=== PATIENT | female | born 2000 | race Caucasian/White ===

== ENCOUNTER 2023-03-18 17:39 | Observation (INO) | payer OTHER ==
[2023-03-18] MEDS ORDERED: SODIUM CHLORIDE 0.9% 1,000 ML IV STA ×2 (18:13)
--- NOTE | 2023-03-18 18:13 | ED ---
Psych HPI - General Chief Complaint: Psychiatric Symptoms Stated Complaint: petition Time Seen by Provider: 03/18/23 18:00 Source: patient, police, RN notes reviewed Mode of arrival: ambulatory - History of Present Illness Initial Comments: 22-year-old female with history depression who took his many as 48 [id number] 25 mg Benadryl tablets around 3:30 to 4 PM today he does admit to feeling sleepy she states she was try to herself. She was brought in by police under petition. She denies any other medications denies any other medical problems at this time. MD Complaint: suicidal ideation, feels depressed - Related Data Allergies Allergy/AdvReac Type Severity Reaction Status Date / Time No Known Allergies Allergy Verified 03/18/23 18:25 Review of Systems ROS Statement: Those systems with pertinent positive or pertinent negative responses have been documented in the HPI. ROS Other: All systems not noted in ROS Statement are negative. Past Medical History Past Medical History: No Reported History Past Surgical History: No Surgical Hx Reported Past Psychological History: Anxiety, Depression Smoking Status: Current some day smoker Past Alcohol Use History: Occasional Past Drug Use History: Marijuana General Exam - General Exam Comments Initial Comments: Is a well-developed well-nourished awake alert oriented 4 female she does appear tired and somewhat anxious and some episodes of confusion. Limitations: no limitations General appearance: alert, anxious Head exam: Present: atraumatic, normocephalic, normal inspection Eye exam: Present: normal appearance, PERRL, EOMI. Absent: scleral icterus, conjunctival injection, periorbital swelling ENT exam: Present: mucous membranes dry Neck exam: Present: normal inspection, full ROM, other (No stridor JVD or bruits). Absent: tenderness, meningismus, lymphadenopathy Respiratory exam: Present: normal lung sounds bilaterally. Absent: respiratory distress, wheezes, rales, rhonchi, stridor Cardiovascular Exam: Present: normal rhythm, tachycardia, normal heart sounds. Absent: systolic murmur, diastolic murmur, rubs, gallop, clicks GI/Abdominal exam: Present: soft, normal bowel sounds. Absent: distended, tenderness, guarding, rebound, rigid Extremities exam: Present: normal inspection, full ROM, normal capillary refill. Absent: tenderness, pedal edema, joint swelling, calf tenderness Back exam: Present: normal inspection Neurological exam: Present: alert, oriented X3, CN II-XII intact Psychiatric exam: Present: depressed, anxious, suicidal ideation Skin exam: Present: warm, dry, intact, normal color. Absent: rash Course Vital Signs 03/18/23 03/18/23 03/18/23 17:47 18:15 18:42 Temperature 97.5 F L Pulse Rate 141 H 149 H 134 H Respiratory 24 18 24 Rate Blood Pressure 133/84 138/79 136/87 O2 Sat by Pulse 97 96 98 Oximetry - Reevaluation(s) Reevaluation #1: 03/18/23 20:43 Evaluation the patient for she still tachycardic still demonstrate some confusion no new findings since arrival. I did discuss the findings the patient's father who was present. Medical Decision Making - Medical Decision Making I did discuss the findings with the patient and her father was present patient is demonstrating symptoms of overdose of Benadryl. Patient will be admitted to medicine for inpatient evaluation with psychiatric consultation in the a.m. I did discuss the case with . Was pt. sent in by a medical professional or institution (, PA, HAULING CONTRACTOR, urgent care, hospital, or detention...) When possible be specific @ -No Did you speak to anyone other than the patient for history (EMS, parent, family, police, friend...)? What history was obtained from this source @ -Police around arrival time Did you review nursing and triage notes (agree or disagree)? Why? @ -I reviewed and agree with nursing and triage notes Were old charts reviewed (outside hosp., previous admission, EMS record, old EKG, old radiological studies, urgent care reports/EKG's, detention records)? Report findings @ -No old charts were reviewed Differential Diagnosis (chest pain, altered mental status, abdominal pain women, abdominal pain men, vaginal bleeding, weakness, fever, dyspnea, syncope, headache, dizziness, GI bleed, back pain, seizure, CVA, palpatations, mental health, musculoskeletal)? @ -Depression, suicidal ideation, Benadryl overdose EKG interpreted by me (3pts min.). @ -As above EKG interpreted by me sinus tachycardia of 131 NH interval 120 QRS duration 86 QT/QTC 284/361 indeterminate axis possible right ventricular conduction delay no acute ST-T wave changes seen. X-rays interpreted by me (1pt min.). @ -None done CT interpreted by me (1pt min.). @ -None done U/S interpreted by me (1pt. min.). @ -None done What testing was considered but not performed or refused? (CT, X-rays, U/S, labs)? Why? @ -None What meds were considered but not given or refused? Why? @ -None Did you discuss the management of the patient with other professionals (professionals i.e. , PA, HAULING CONTRACTOR, lab, RT, psych nurse, social sciences lecturer, analyzer sales, teacher, supervisory cbp officer, embedded case manager)? Give summary @ -Dr. Smith Was smoking cessation discussed for >3mins.? @ -No Was critical care preformed (if so, how long)? @ -No Were there social determinants of health that impacted care today? How? (Homelessness, low income, unemployed, alcoholism, drug addiction, transportation, low edu. Level, literacy, decrease access to med. care, [facility] [facility], rehab)? @ -No Was there de-escalation of care discussed even if they declined (Discuss DNR or withdrawal of care, Hospice)? DNR status @ -No What co-morbidities impacted this encounter? (DM, HTN, Smoking, COPD, CAD, Cancer, CVA, ARF, Chemo, Hep., AIDS, mental health diagnosis, sleep apnea, morbid obesity)? @ -Depression] Was patient admitted / discharged? Hospital course, mention meds given and route, prescriptions, significant lab abnormalities, going to OR and other pertinent info. @ -hospital course H was admitted for inpatient observation and evaluation with psychiatric consultation in the a.m. Undiagnosed new problem with uncertain prognosis? @ -No Drug Therapy requiring intensive monitoring for toxicity (Heparin, Nitro, Insulin, Cardizem)? @ -Benadryl overdose Were any procedures done? @ -No Diagnosis/symptom? @ -Depression, suicidal ideation, Benadryl overdose, sinus tachycardia Acute, or Chronic, or Acute on Chronic? @ -Acute Uncomplicated (without systemic symptoms) or Complicated (systemic symptoms)? @ -Located Side effects of treatment? @ -No Exacerbation, Progression, or Severe Exacerbation? @ -No Poses a threat to life or bodily function? How? (Chest pain, [place], CA, pneumonia, PE, COPD, DKA, ARF, appy, cholecystitis, CVA, Diverticulitis, Homicidal, Castro icidal, threat to staff... and all critical care pts) @ -Potential, overdose - Lab Data Result diagrams: 03/18/23 18:16 03/18/23 18:16 Lab Results 03/18/23 03/18/23 03/18/23 Range/Units 18:09 18:10 18:16 WBC (3.8-10.6) k/uL RBC (3.80-5.40) m/uL Hgb (11.4-16.0) gm/dL Hct (34.0-46.0) % MCV (80.0-100.0) fL MCH (25.0-35.0) pg MCHC (31.0-37.0) g/dL RDW (11.5-15.5) % Plt Count (150-450) k/uL MPV Neutrophils % % Lymphocytes % % Monocytes % % Eosinophils % % Basophils % % Neutrophils # (1.3-7.7) k/uL Lymphocytes # (1.0-4.8) k/uL Monocytes # (0-1.0) k/uL Eosinophils # (0-0.7) k/uL Basophils # (0-0.2) k/uL Sodium 144 (137-145) mmol/L Potassium 4.0 (3.5-5.1) mmol/L Chloride 107 (98-107) mmol/L Carbon Dioxide 19 L (22-30) mmol/L Anion Gap 18 mmol/L BUN 8 (7-17) mg/dL Creatinine 0.59 (0.52-1.04) mg/dL Est GFR (CKD-EPI)AfAm >90 (>60 ml/min/1.73 sqM) Est GFR (CKD-EPI)NonAf >90 (>60 ml/min/1.73 sqM) Glucose 85 (74-99) mg/dL Calcium 10.2 (8.4-10.2) mg/dL Magnesium 2.0 (1.6-2.3) mg/dL Total Bilirubin 0.5 (0.2-1.3) mg/dL AST 26 (14-36) U/L ALT 32 (4-34) U/L Alkaline Phosphatase 78 (38-126) U/L Creatine Kinase 54 (30-135) U/L Total Protein 9.1 H (6.3-8.2) g/dL Albumin 5.2 H (3.5-5.0) g/dL Urine HCG, Qual Not Detected (Not Detectd) Salicylates <1.0 mg/dL Urine Opiates Screen Not Detected (NotDetected) Ur Oxycodone Screen Not Detected (NotDetected) Urine Methadone Screen Not Detected (NotDetected) Ur Propoxyphene Screen Not Detected (NotDetected) Acetaminophen <10.0 ug/mL Ur Barbiturates Screen Not Detected (NotDetected) U Tricyclic Antidepress Not Detected (NotDetected) Ur Phencyclidine Scrn Not Detected (NotDetected) Ur Amphetamines Screen Not Detected (NotDetected) U Methamphetamines Scrn Not Detected (NotDetected) U Benzodiazepines Scrn Not Detected (NotDetected) Urine Cocaine Screen Not Detected (NotDetected) U Marijuana (THC) Screen Not Detected (NotDetected) Serum Alcohol <10 mg/dL Influenza Type A (PCR) (Not Detectd) Influenza Type B (PCR) (Not Detectd) RSV (PCR) (Not Detectd) SARS-CoV-2 (PCR) (Not Detectd) 03/18/23 03/18/23 Range/Units 18:16 18:16 WBC 12.6 H (3.8-10.6) k/uL RBC 5.31 (3.80-5.40) m/uL Hgb 15.2 (11.4-16.0) gm/dL Hct 46.9 H (34.0-46.0) % MCV 88.3 (80.0-100.0) fL MCH 28.7 (25.0-35.0) pg MCHC 32.5 (31.0-37.0) g/dL RDW 12.6 (11.5-15.5) % Plt Count 426 (150-450) k/uL MPV 7.6 Neutrophils % 74 % Lymphocytes % 19 % Monocytes % 4 % Eosinophils % 1 % Basophils % 1 % Neutrophils # 9.3 H (1.3-7.7) k/uL Lymphocytes # 2.4 (1.0-4.8) k/uL Monocytes # 0.5 (0-1.0) k/uL Eosinophils # 0.2 (0-0.7) k/uL Basophils # 0.1 (0-0.2) k/uL Sodium (137-145) mmol/L Potassium (3.5-5.1) mmol/L Chloride (98-107) mmol/L Carbon Dioxide (22-30) mmol/L Anion Gap mmol/L BUN (7-17) mg/dL Creatinine (0.52-1.04) mg/dL Est GFR (CKD-EPI)AfAm (>60 ml/min/1.73 sqM) Est GFR (CKD-EPI)NonAf (>60 ml/min/1.73 sqM) Glucose (74-99) mg/dL Calcium (8.4-10.2) mg/dL Magnesium (1.6-2.3) mg/dL Total Bilirubin (0.2-1.3) mg/dL AST (14-36) U/L ALT (4-34) U/L Alkaline Phosphatase (38-126) U/L Creatine Kinase (30-135) U/L Total Protein (6.3-8.2) g/dL Albumin (3.5-5.0) g/dL Urine HCG, Qual (Not Detectd) Salicylates mg/dL Urine Opiates Screen (NotDetected) Ur Oxycodone Screen (NotDetected) Urine Methadone Screen (NotDetected) Ur Propoxyphene Screen (NotDetected) Acetaminophen ug/mL Ur Barbiturates Screen (NotDetected) U Tricyclic Antidepress (NotDetected) Ur Phencyclidine Scrn (NotDetected) Ur Amphetamines Screen (NotDetected) U Methamphetamines Scrn (NotDetected) U Benzodiazepines Scrn (NotDetected) Urine Cocaine Screen (NotDetected) U Marijuana (THC) Screen (NotDetected) Serum Alcohol mg/dL Influenza Type A (PCR) Not Detected (Not Detectd) Influenza Type B (PCR) Not Detected (Not Detectd) RSV (PCR) Not Detected (Not Detectd) SARS-CoV-2 (PCR) Not Detected (Not Detectd) - EKG Data -: EKG Interpreted by Me EKG Comments: Interpretation by me sinus tachycardia rate 131. Interval 120 QRS duration 86 QT since QTC indeterminate axis possible ventricular conduction delay no acute ST-T wave changes Disposition Clinical Impression: Depression, Suicidal ideation, Drug overdose, intentional Disposition: ADMITTED IP TO THIS HOSP Condition: Stable Referrals: None,Stated [Primary Care Provider] - 1-2 days Decision Date: 03/18/23 Decision Time: 20:56
[2023-03-18 18:40] LABS: Basophils # (A) 0.1 k/uL (0-0.2); Basophils % (A) 1 %; Eosinophils # (A) 0.2 k/uL (0-0.7); Eosinophils % (A) 1 %; HCT 46.9 % (34.0-46.0); HGB 15.2 gm/dL (11.4-16.0); Lymphocytes # (A) 2.4 k/uL (1.0-4.8); Lymphocytes % (A) 19 %; MCH 28.7 pg (25.0-35.0); MCHC 32.5 g/dL (31.0-37.0); MCV 88.3 fL (80.0-100.0); Mean Platelet Volume 7.6; Monocytes # (A) 0.5 k/uL (0-1.0); Monocytes % (A) 4 %; Neutrophils # (A) 9.3 k/uL (1.3-7.7); Neutrophils % (A) 74 %; Platelet Count 426 k/uL (150-450); RBC 5.31 m/uL (3.80-5.40); RDW 12.6 % (11.5-15.5); WBC 12.6 k/uL (3.8-10.6)
[2023-03-18 18:48] LABS: Sodium 144 mmol/L (137-145)
[2023-03-18 18:49] LABS: ALT 32 U/L (4-34); AST 26 U/L (14-36); Acetaminophen <10.0 ug/mL; African American GFR (CKD) >90 (>60 ml/min/1.73 sqM); Albumin 5.2 g/dL (3.5-5.0); Alcohol <10 mg/dL; Alkaline Phosphatase 78 U/L (38-126); Anion Gap 18 mmol/L; Blood Urea Nitrogen 8 mg/dL (7-17); Calcium 10.2 mg/dL (8.4-10.2); Carbon Dioxide 19 mmol/L (22-30); Chloride 107 mmol/L (98-107); Creatine Kinase 54 U/L (30-135); Glucose 85 mg/dL (74-99); Non-African American GFR(CKD) >90 (>60 ml/min/1.73 sqM); Salicylate <1.0 mg/dL; Total Bilirubin 0.5 mg/dL (0.2-1.3); Total Protein 9.1 g/dL (6.3-8.2)
[2023-03-18 19:21] LABS: Amphetamine Screen,Urine Not Detected (NotDetected); Barbiturate Screen,Urine Not Detected (NotDetected); Benzodiazepines Screen,Urine Not Detected (NotDetected); Cocaine Screen,Urine Not Detected (NotDetected); Methadone Screen, Urine Not Detected (NotDetected); Opiate Screen,Urine Not Detected (NotDetected); Oxycodone Screen, Urine Not Detected (NotDetected); Phencyclidine Screen,Urine Not Detected (NotDetected); Tricyclic Antidepressant,Urine Not Detected (NotDetected); Urn Cannabinoid Scrn Not Detected (NotDetected)
[2023-03-18] MEDS ORDERED: NALOXONE 0.4 MG/ML 1 ML VIAL IV PRN (20:56)
[2023-03-18] MEDS: SODIUM CHLORIDE 0.9% 1,000 ML IV SCH (21:00)
--- NOTE | 2023-03-18 23:26 | P.HPIM ---
History of Present Illness H&P Date: 03/18/23 Patient is a 22-year-old female with a PMH of depression and prior history of suicide attempt with overdose who presents to the emergency room after an intentional overdose of Benadryl. Patient reports that she had gotten into an argument with her which led to her feeling down. States the argument was a day prior and that earlier today she decided to take a full bottle of Benadryl with likely 25 mg 50 tablets. Reports feeling somewhat strange at the time of interview but had no additional complaints. Denied experiencing chest discomfort, shortness of breath, fever, chills, cough, nausea, vomiting, abdominal pain, diarrhea. at the bedside states that she is not acting quite like herself. In the emergency room EKG reveals sinus tachycardia at [address]/T-wave changes noted as reviewed by me. Laboratory evaluation was remarkable for leukocytosis of 12.6, CO2 19, albumin 5.2, with urine toxicology negative. ED documentation reviewed and case discussed with ED provider. Review of systems: Pertinent positives and negatives as discussed in HPI, a complete review of systems was performed and all other systems are negative. Physical examination: Vital signs reviewed General: non toxic, no distress, appears at stated age, overweight Derm: no unusual rashes/lesions, warm Head: atraumatic, normocephalic, symmetric Eyes: EOMI, no lid lag, anicteric sclera, pupils equal round reactive to light ENT: Nose and ears atraumatic Neck: No cervical lymphadenopathy, trachea midline, supple Mouth: no lip lesion, mucus membranes moist Cardiovascular: S1S2 reg, no murmur, positive dorsalis pedis pulse bilateral, no edema Lungs: CTA bilateral, no rhonchi, no rales, no accessory muscle use Abdominal: soft, nontender to palpation, no guarding Ext: muscle strength 5 out of 5 in all 4 extremities grossly, no gross muscle atrophy, no contractures, Neuro: CN II-XI grossly intact, no gross focal neuro deficits Psych: Alert, oriented, appropriate affect Assessment: Intentional Benadryl overdose, mild anticholinergic toxicity Leukocytosis, likely secondary to acute stress without obvious signs of infection Imaging: In the emergency room EKG reveals sinus tachycardia at [address]/T-wave changes noted as reviewed by me. Data Review: Laboratory evaluation was remarkable for leukocytosis of 12.6, CO2 19, albumin 5.2, with urine toxicology negative. Plan: Cardiac monitoring Continue with IV fluids with normal saline 130 mL/h Psychiatry consult Suicide precautions DVT prophylaxis: Lovenox subcu The patient is admitted with an anticipated less than 2 midnight stay for evaluation of overdose CODE STATUS: Full Code Discussed with: Patient Anticipated discharge place: Home Past Medical History Past Medical History: No Reported History Past Surgical History: No Surgical Hx Reported Past Psychological History: Anxiety, Depression Smoking Status: Current some day smoker Past Alcohol Use History: Occasional Past Drug Use History: Marijuana Medications and Allergies Home Medications Medication Instructions Recorded Confirmed Type Cholecalciferol [Vitamin D3 (25 50 mcg PO DAILY 03/18/23 03/18/23 History Mcg = 1000 Iu)] Ferrous Sulfate [Feosol] 325 mg PO DAILY 03/18/23 03/18/23 History norgestimate-ethinyl estradioL 1 tab PO DAILY 03/18/23 03/18/23 History [Tri-Sprintec Tablet] Allergies Allergy/AdvReac Type Severity Reaction Status Date / Time No Known Allergies Allergy Verified 03/18/23 22:15 Physical Exam Vitals: Vital Signs Temp Pulse Resp BP Pulse Ox 03/18/23 21:13 116 H 20 130/75 97 03/18/23 18:42 134 H 24 136/87 98 03/18/23 18:15 149 H 18 138/79 96 03/18/23 17:47 97.5 F L 141 H 24 133/84 97 Intake and Output 03/18/23 03/18/23 03/19/23 14:59 22:59 06:59 Other: Weight 72.575 kg Results CBC & Chem 7: 03/18/23 18:16 03/18/23 18:16 Labs: Abnormal Lab Results - Last 24 Hours (Table) 03/18/23 03/18/23 Range/Units 18:16 18:16 WBC 12.6 H (3.8-10.6) k/uL Hct 46.9 H (34.0-46.0) % Neutrophils # 9.3 H (1.3-7.7) k/uL Carbon Dioxide 19 L (22-30) mmol/L Total Protein 9.1 H (6.3-8.2) g/dL Albumin 5.2 H (3.5-5.0) g/dL
[2023-03-19] MEDS: SODIUM CHLORIDE 0.9% 1,000 ML IV SCH ×3 (03:50→22:28)
[2023-03-19] MEDS: ENOXAPARIN 40 MG/0.4 ML SYRINGE SQ SCH (10:34)
--- NOTE | 2023-03-19 16:57 | P.PN ---
Subjective Progress Note Date: 03/19/23 Hospital course: Patient is a very pleasant 22-year-old female with a past medical history of depression and previous suicidal attempts. She presented in the emergency department on 03/18/23 secondary to reports of intentional overdose of Benadryl. Per documentation in chart patient had gotten into an argument with her resulting in increased depression so she decided to take a full bottle of Benadryl 25 mg tablets (approximately 50 tablets in bottle) in a reported attemp t to take her life. Patient underwent full evaluation in the emergency department. Vital signs upon arrival showing heart rate 141, respiratory rate 24, blood pressure 133/84, temp 97.4, and SpO2 of 97% on room air. EKG was completed showing sinus tachycardia and 31 bpm. Labs completed and reviewed. CBC showing mild leukocytosis with WBC count of 12.6 otherwise normal findings. BMP revealing mild hypocarbia with bicarb of 19 and elevated anion gap of 18 otherwise normal findings. Liver profile unremarkable. Urine hCG was negative for . Urine drug screen negative. Salicylates and acetaminophen negative. Serum alcohol was also negative. Influenza A, influenza B, RSV, Covid PCR negative. Patient was admitted under our services with consultation to psychiatry. Physical exam: Patient seen and fully evaluated at bedside. Patient sleeping in bed patient's significant other at bedside sleeping in chair. Patient denies having any complaints including headache, lightheadedness, dizziness, chest pain, palpitations, shortness of breath or experiencing any numbness/tingl ing/weakness/swelling in her extremities. Patient no longer tachycardic at time of assessment. Patient was at her outside of door monitoring closely/continuously for suicide/kilo minute precautions. Vital signs reviewed and stable. General: Nontoxic, no distress and appears stated age. Derm: Skin warm and dry, normal coloration for ethnicity. Head: Atraumatic, normocephalic and symmetric. Eyes: EOMs intact, no lid lag, and anicteric sclera Mouth: no lip lesions, mucus membranes moist Cardiovascular: regular rate and rhythm with normal S1S2, no murmur, positive posterior tibial pulses bilaterally, and cap refill < 2 seconds. Lungs: Respirations even, regular, and unlabored on room air. Lungs CTA bilaterally, no rhonchi, no rales, no wheezing, and no accessory muscle usage. Abdominal: soft, nontender to palpation, no guarding, no appreciable organomegaly Ext: ROM intact. No gross muscle atrophy, no edema, no contractures Neuro: Speech clear, face symmetrical and CN II-XII grossly intact with no noted focal neuro deficits Psych: Alert and oriented to person, place, time, and situation. Appropriate and pleasant affect. Assessment and Plan of Care: Suicidal attempt via intentional overdose Mild anticholinergic toxicity with sinus tachycardia Leukocytosis, reactive secondary to acute stressor no signs of infection -Patient to remain on continuous telemetry monitoring -Gentle IV fluid hydration with 0.9% normal saline at 130 mL per hour. -Neuro checks every 4 hours -Fall precautions -Suicide precautions and elopement precautions to remain in place -Psychiatry consulted, appreciate recommendations Data reviewed: Vital signs reviewed. Blood pressure 114/72, heart rate 67, respiratory rate 17, temp 98.2F, and SpO2 of 96% on room air. Patient is medically optimized for discharge at this time, she has no further episodes of tachycardia concerning for mild anticholinergic toxicity. Vital signs stable. Awaiting evaluation by psychiatry. Once psychiatry evaluates patient, patient may be cleared for discharge to inpatient psychiatric unit. CODE STATUS: Full code DVT prophylaxis: Lovenox Anticipated discharge date: Clinical course to determine, medically optimized for discharge to inpatient psychiatric unit Anticipated discharge place: Inpatient psychiatric unit Patient was seen independently by Nurse Pracitioner. This document was prepared using [employer] dictation software. Please allow for errors in [employer], while rare they do occur. Demario Cartagena NP rendered care for this patient independently, reviewed the findings and plan as documented in the note above. I did not physically speak with or examine the patient on this date. Objective - Vital Signs Vital signs: Vital Signs Temp 98.2 F 03/19/23 06:36 Pulse 66 03/19/23 07:10 Resp 18 03/19/23 07:10 BP 115/72 03/19/23 07:10 Pulse Ox 97 03/19/23 07:10 FiO2 Intake & Output 03/18/23 03/19/23 03/19/23 18:59 06:59 18:59 Weight 72.575 kg - Labs CBC & Chem 7: 03/18/23 18:16 03/18/23 18:16 Labs: Abnormal Lab Results - Last 24 Hours (Table) 03/18/23 03/18/23 Range/Units 18:16 18:16 WBC 12.6 H (3.8-10.6) k/uL Hct 46.9 H (34.0-46.0) % Neutrophils # 9.3 H (1.3-7.7) k/uL Carbon Dioxide 19 L (22-30) mmol/L Total Protein 9.1 H (6.3-8.2) g/dL Albumin 5.2 H (3.5-5.0) g/dL
[2023-03-20] MEDS: SODIUM CHLORIDE 0.9% 1,000 ML IV SCH ×2 (05:11→11:35)
[2023-03-20 08:34] VITALS: RESP 16
[2023-03-20] MEDS: ENOXAPARIN 40 MG/0.4 ML SYRINGE SQ SCH (09:34)
[2023-03-20 11:08] LABS: HCT 37.5 % (37.2-46.3); HGB 12.1 g/dL (12.0-15.0); MCH 28.6 pg (27.0-32.0); MCHC 32.3 g/dL (32.0-37.0); MCV 88.7 FL (80.0-97.0); Mean Platelet Volume 9.7 FL (9.5-12.2); NRBC Per 100 WBC 0 X 10*3/uL (0.00-0.01); Platelet Count 327 X 10*3/uL (140-440); RBC 4.23 X 10*6/uL (4.10-5.20); RDW 12.1 % (11.5-14.5); WBC 10.65 X 10*3/uL (4.50-10.00)
[2023-03-20 11:21] LABS: ALT 23 U/L (8-44); AST 15 U/L (13-35); Albumin 3.9 g/dL (3.8-4.9); Alkaline Phosphatase 70 U/L (41-126); BUN/Creat Ratio 11.33 Ratio (12.00-20.00); Blood Urea Nitrogen 6.8 mg/dL (9.0-27.0); Calcium 8.8 mg/dL (8.7-10.3); Carbon Dioxide 21.1 mmol/L (21.6-31.8); Chloride 108 mmol/L (96-109); Globulin 2.6 g/dL (1.6-3.3); Glucose 79 mg/dL (70-110); Magnesium 1.9 mg/dL (1.5-2.4); Potassium 3.7 mmol/L (3.5-5.5); Sodium 137 mmol/L (135-145); Total Bilirubin 0.6 mg/dL (0.3-1.2); Total Protein 6.5 g/dL (6.2-8.2)
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
[2023-03-20] MEDS ORDERED: traZODone HCL 50 MG TAB PO PRN (13:16)
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
[2023-03-20] MEDS ORDERED: SERTRALINE 25 MG TAB PO SCH (13:30)
[2023-03-20 13:37] VITALS: BP 117/75; PULSE 77; TEMP 98.6
== END 2023-03-20 22:30 ==
LOC: EC 17:39 → 5NMEDONC 20:56
PROVIDERS: ADMIT Internal Medicine; ATTEND Internal Medicine
DX: T45.0X2A Poisoning by antiallergic and antiemetic drugs, intentional self-harm, initial encounter (principal); T44.3X5A Adverse effect of other parasympatholytics [anticholinergics and antimuscarinics] and spasmolytics, initial encounter; R00.0 Tachycardia, unspecified; Z91.51 Personal history of suicidal behavior; F32.9 Major depressive disorder, single episode, unspecified; F41.9 Anxiety disorder, unspecified; Z74.3 Need for continuous supervision; Z20.822 Contact with and (suspected) exposure to COVID-19; F17.200 Nicotine dependence, unspecified, uncomplicated
CPT/HCPCS: 96361 ×4; 96372 ×2; 82075; 96360; 99285; 36415; 80053 ×2; 82550; 83735 ×2; 85025; 85027; 81025; 80306; 80143; 87636; 80179; G0378 ×3; G0480; J1650 ×2; 80320

== ENCOUNTER 2023-03-20 19:41 | Inpatient (IN) | payer MEDICAID ==
[2023-03-20] MEDS ORDERED: HALOPERIDOL LACTATE 5 MG/ML 1 ML VIAL IM PRN (19:58)
[2023-03-20] MEDS ORDERED: LORazepam 1 MG TAB PO PRN (19:58)
[2023-03-20] MEDS ORDERED: MAG HYDROX/AL HYDROX/SIMETH 30 ML CUP PO PRN (19:58)
[2023-03-20] MEDS ORDERED: LORazepam 2 MG/ML INJ IM PRN (19:58)
[2023-03-20] MEDS ORDERED: ACETAMINOPHEN TAB 325 MG TAB PO PRN (19:58)
[2023-03-20] MEDS ORDERED: haloperidoL 5 MG TAB PO PRN (19:58)
[2023-03-20] MEDS ORDERED: IBUPROFEN 600 MG TAB PO PRN (19:58)
[2023-03-20] MEDS ORDERED: MAGNESIUM HYDROXIDE 2,400 MG/30 ML CUP PO PRN (19:58)
[2023-03-20] MEDS ORDERED: traZODone HCL 50 MG TAB PO PRN (23:16)
[2023-03-21] MEDS ORDERED: SERTRALINE 25 MG TAB PO SCH (09:00)
[2023-03-21] MEDS: FERROUS SULFATE 325 MG TAB PO SCH (09:04)
[2023-03-21] MEDS: CHOLECALCIFEROL 25 MCG (1000 IU) TABLET PO SCH (09:04)
[2023-03-21] MEDS: NORGESTIMATE ETHINYL ESTRADIOL PO SCH (10:12)
--- NOTE | 2023-03-21 11:21 | P.HP ---
Psychiatric H&P - . 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 HPI: Patient presented to the hospital hospital initially on 03/18, apparently patient has a history of depression. She presented after a overdose of a bottle of Benadryl at home. Patient was reportedly confused, admitted to it being a suicide attempt. Patient was also petitioned by police. Urine drug screen was negative, blood alcohol level was negative. Patient was admitted medically, and transferred to the U after she was medically stable. Upon todays interview, patient states that she's feeling a little better, just very sleepy. She states that her mood and anxiety are doing "fine" continues to have constricted and depressed affect. Patient is not very forthcoming with any additional information. mainly isolating in her room at this time. not attending many groups. Patient denies any suicidal or homicidal ideations intent or plan. At this time patient denies any auditory or visual hallucinations. Patient denies any flight of ideas racing thoughts and increased in goal directed behavior. Patient denies drugs/alcohol/nicotine PAST PSYCHIATRIC HISTORY: Patient has a a history of depression. Patient denies being on any psychiatric medications however states that she is to be on Zoloft in the past. Patient claims that she was admitted to [facility] in 2019 for an overdose. Patient denies any psychiatric outpatient follow-up however does have a therapist that she works with. Patient states that she had 3 overdoses in the past. PMH: As per ED note ALLERGIES: as per EMR CHEMICAL DEPENDENCY HISTORY: as per HPI FAMILY PSYCHIATRIC/SUBSTANCE USE HISTORY: denies SOCIAL HISTORY: Patient was born and raised in [place] and then moved to the [place] at a young age. 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 She completed high school and is currently in college at [employer]. Denies any legal history. MENTAL STATUS EXAM: General Appearance: Patient appears to be wearing glasses, crying, stated age is alert, pleasant, and attempts to be cooperative. Patient appears to have fair hygiene and grooming wearing hospital gown with fair eye contact. Behavior: Patient is calmly lying in bed without any agitated behavior. drowsy Speech: Patient's speech is fluent and nonpressured. [place], Mood/Affect: Patient reports their mood is "better today", affect is congruent Suicidality/Homicidality: Patient denies having any suicidal or homicidal ideation intent or plan. Perceptions: Patient denies any visual hallucinations and denies any auditory hallucinations Though content/process: There is no evidence of any delusional thought content and thought process is linear and goal-directed. vague at times. Memory and concentration: AOX3, grossly intact for the purposes of this session. Can spell "WORLD" backwards Judgment and insight: poor STRENGTHS/WEAKNESSES: strength is that patient is resilient. Weakness is that patient has poor judgment and is impulsive INTELLECT: average IMPRESSIONS: Major depressive disorder, without psychotic features Overdose on medication PLAN: -Patient is admitted under [voluntary] status to MHU for stabilization of psychiatric symptoms and safety. Patient has signed adult voluntary form and medication consent and is placed in patient's chart. -Medications : increase Zoloft 50 mg daily for mood/anxiety. decrease Trazodone 25 mg daily scheduled for insomnia/mood. -Ativan [and Haldol] PRN for agitation/aggression -Patient was informed of the risks, benefits and side effects of the medication and patient verbally consented to taking the medications. Patient signed med consent form and was placed in chart. -Internal Medicine consult to perform medical evaluation and physical. -NRT - non smoker -SW on board for discharge planning. Encourage patient to participate in groups to work on coping skills. 03/21/23 11:19
[2023-03-21] MEDS ORDERED: traZODone HCL 50 MG TAB PO SCH (21:00)
[2023-03-22] MEDS: CHOLECALCIFEROL 25 MCG (1000 IU) TABLET PO SCH (08:18)
[2023-03-22] MEDS: SERTRALINE 50 MG TAB PO SCH (08:18)
[2023-03-22] MEDS: FERROUS SULFATE 325 MG TAB PO SCH (08:19)
[2023-03-22] MEDS: NORGESTIMATE ETHINYL ESTRADIOL PO SCH (08:19)
[2023-03-22] MEDS ORDERED: MELATONIN 5 MG TABLET PO PRN (10:30)
--- NOTE | 2023-03-22 10:59 | P.PN ---
Progress Note - Text Progress Note Date: 03/22/23 Interval History: Patient was seen wandering the hallways and was directable and agreeable to speak with screen writer in the office. Patient states she is feeling better than yesterday, and is feeling more like herself. Patient claims that she's feeling a bit anxious, with racing thoughts of her job and school, and missing too much of them. Told patient we could provide a letter of hospitalization, and she was ok with that. Patient is attending groups, and enjoys them. Appetite is "pretty good" Denies side effects from medication. Patient states she had a hard time falling asleep last night, due to racing thoughts. Will increase trazadone to help with this . At this time patient denies any suicidal or homical ideations, intent or plan. Patient denies any auditory, visual hallucinations and denies any paranoia or delusions. Patient denies any side effects from the medications and has been compliant with meds. Mental Status Exam: General Appearance: Patient appears to be wearing glasses, stated age is alert, pleasant, and attempts to be cooperative. Patient appears to have fair hygiene and grooming wearing street clothes, with fair eye contact. Behavior: Patient is calmly seated without any agitated behavior. Speech: Patient's speech is fluent and nonpressured. Mood/Affect: Patient reports their mood is "better today", affect is congruent, improving Suicidality/Homicidality: Patient denies having any suicidal or homicidal ideation intent or plan. Perceptions: Patient denies any visual hallucinations and denies any auditory hallucinations Though content/process: There is no evidence of any delusional thought content and thought process is linear and goal-directed. Memory and concentration: AOX3, grossly intact for the purposes of this session. Judgment and insight: improving IMPRESSIONS: Major depressive disorder, without psychotic features Overdose on medication PLAN: -Patient is admitted under voluntary status to MHU for stabilization of psychiatric symptoms and safety. Patient has signed adult voluntary form and medication consent and is placed in patient's chart. -Medications : Zoloft 50 mg daily for mood/anxiety. increase Trazodone 50mg daily scheduled for insomnia/mood. Add melatonin 5mg po qhs prn for sleep. -Ativan and Haldol PRN for agitation/aggression -NRT - non smoker -SW on board for discharge planning. Encourage patient to participate in groups to work on coping skills. Likely discharge tomorrow, after talking with family to ensure safe living environment.
[2023-03-22] MEDS ORDERED: traZODone HCL 50 MG TAB PO SCH (21:00)
[2023-03-23 07:36] VITALS: BP 107/58; PULSE 62; RESP 14; TEMP 98
[2023-03-23] MEDS: NORGESTIMATE ETHINYL ESTRADIOL PO SCH (07:42)
[2023-03-23] MEDS: CHOLECALCIFEROL 25 MCG (1000 IU) TABLET PO SCH (09:05)
[2023-03-23] MEDS: FERROUS SULFATE 325 MG TAB PO SCH (09:06)
[2023-03-23] MEDS: SERTRALINE 50 MG TAB PO SCH (09:06)
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
== END 2023-03-23 11:48 | disposition home or self-care (01) | DRG 754 ==
LOC: 3MHU 22:31
PROVIDERS: ADMIT Psychiatry & Neurology Psychiatry; ATTEND Psychiatry & Neurology Psychiatry
DX: F32.9 Major depressive disorder, single episode, unspecified (principal); F41.9 Anxiety disorder, unspecified; G47.00 Insomnia, unspecified; R45.851 Suicidal ideations; Z79.899 Other long term (current) drug therapy